=== PATIENT | female | born 1985 | race Two or more races ===

== ENCOUNTER 2016-12-07 11:00 | Emergency (ER) | payer OTHER ==
[2016-12-07 11:15] VITALS: BP 132/89; PULSE 86; TEMP 98.5; BMI 21.9
--- NOTE | 2016-12-07 11:50 | PDOC ---
History of Present Illness - General Chief Complaint: Burn Stated Complaint: BURN OF LEFT BREAST Time Seen by Provider: 12/07/16 11:41 History Source: Patient Exam Limitations: No Limitations - History of Present Illness Initial Comments: 31 yo F no PMH presents with burn to the L breast. She sustained it while cooking 5 days ago. She noted that the skin has peeled. It is not painful, but she was concerned for how to take care of it. She is a physical therapist, and is rather active at work. Denies fever, chills. No drainage from the wound. She has been applying neosporin and nonstick bandages so far. Past History - Past Medical History Allergies/Adverse Reactions: Allergies Allergy/AdvReac Type Severity Reaction Status Date / Time No Known Allergies Allergy Verified 12/07/16 11:06 Home Medications: Ambulatory Orders Bacitracin - [Bacitracin Topical Ointment -] 1 applic TP BID #1 tube 12/07/16 Bismuth Tribromoph/Petrolatum [Xeroform 5"X9" Gauze Strip] 0.5 each TP BID #15 bandage 12/07/16 GI Disorders: Yes (GALL STONES) - Psycho/Social/Smoking Cessation Hx Anxiety: No Suicidal Ideation: No Smoking History: Never smoked Hx Alcohol Use: Yes (SOCIAL) Drug/Substance Use Hx: No Substance Use Type: None Review of Systems - Review of Systems Able to Perform ROS?: Yes Comments:: GENERAL/CONSTITUTIONAL: No fever or chills. No weakness. HEAD, EYES, EARS, NOSE AND THROAT: No change in vision. No ear pain or discharge. No sore throat. SKIN: +Burn to left breast. ALLERGIC/IMMUNOLOGIC: No hives or skin allergy. *Physical Exam - Vital Signs Last Vital Signs Temp Pulse Resp BP Pulse Ox 98.5 F 86 15 132/89 97 12/07/16 11:05 12/07/16 11:05 12/07/16 11:05 12/07/16 11:05 12/07/16 11:05 - Physical Exam Comments: GENERAL: Awake, alert, and fully oriented, in no acute distress HEAD: No signs of trauma EYES: PERRLA, EOMI, sclera anicteric, conjunctiva clear NEUROLOGICAL: Cranial nerves II through XII grossly intact. Normal speech, normal gait SKIN: Warm, Dry, normal turgor. +Partial thickness burn to the L breast, just above the areola, approx 6cm x 3cm. Superficial skin sloughed off, with pink skin to the burn itself. No drainage, no surrounding erythema. Medical Decision Making - Medical Decision Making Counseled her to apply antibiotic ointment, xeroform, and dry gauze when she is at work. For nighttime, she can sleep without a dressing if that is comfortable (to allow it to dry out), however, it may be difficult to sleep this way. Avoid any occlusive dressings to avoid excessive moisture. F/u with breast surgeon. I gave her information Dr. Ramirez for f/u. *DC/Admit/Observation/Transfer Diagnosis at time of Disposition: Burn - Discharge Dispostion Disposition: HOME Condition at time of disposition: Stable Admit: No - Prescriptions Prescriptions: Bacitracin - [Bacitracin Topical Ointment -] 1 applic TP BID #1 tube Bismuth Tribromoph/Petrolatum [Xeroform 5"X9" Gauze Strip] 0.5 each TP BID #15 bandage - Referrals Referrals: Santos Ramirez MD [Staff Physician] - - Patient Instructions Printed Discharge Instructions: How to Take Care of a Burn, DI for Chow
== END 2016-12-07 12:25 | disposition home or self-care (01) ==
LOC: FER 11:00
DX: T21.01XA Burn of unspecified degree of chest wall, initial encounter (principal); X08.8XXA Exposure to other specified smoke, fire and flames, initial encounter; Y93.G3 Activity, cooking and baking; Y92.9 Unspecified place or not applicable
CPT/HCPCS: 99281-25

== ENCOUNTER 2021-01-04 16:07 | Emergency (ER) | payer OTHER ==
[2021-01-04 16:23] VITALS: BP 132/66; PULSE 88; TEMP 98.6; BMI 23.3
[2021-01-04] MEDS ORDERED: GABAPENTIN 100 MG CAPSULE PO ONE (17:09)
[2021-01-04] MEDS ORDERED: predniSONE 20 MG TABLET (UD) PO ONE (17:09)
[2021-01-04] MEDS ORDERED: predniSONE 20 MG TABLET (UD) ONE (17:17)
[2021-01-04] MEDS ORDERED: GABAPENTIN 100 MG CAPSULE ONE (17:17)
== END 2021-01-04 18:03 | disposition home or self-care (01) ==
LOC: JERFT 16:07 → JER 16:07 → JERFT 18:03
DX: M89.8X1 Other specified disorders of bone, shoulder (principal)
CPT/HCPCS: 99283-25